=== PATIENT | male | born 1995 | race Caucasian/White ===

== ENCOUNTER 2022-09-09 17:52 | Emergency (ER) | payer SELFPAY ==
[2022-09-09 17:54] VITALS: PULSE 105; RESP 18; TEMP 37.1; O2SAT 96
--- NOTE | 2022-09-09 20:18 | NUR.NOTE ---
Nursing Note:Wound cleaned out with 1L of NS.
--- NOTE | 2022-09-09 20:50 | NUR.NOTE ---
Nursing Note: stapled wound covered with bacitracin, gauze and tegaderm oer COMPLAINTS COORDINATOR request
--- NOTE | 2022-09-09 20:56 | ED.GENADUL_ITS ---
Discharge Plan Disposition Patient Disposition: Home Discharge Details Clinical Impression: Laceration of leg not thigh, left ED Provider: Madhu Portillo Home Meds and New Rx's Prescriptions: No Action No Known Home Meds Discharge Instructions Instructions: Laceration (ED), Staple Care (ED) Additional Instructions: Watch for any signs of infection and return immediately to the emergency department if these occur. Otherwise keep dressing in place for the next 24-48 hours and then keep wound clean and dry. Return to the emergency department 14 days for suture removal. Discharge Data Discharge Date/Time-TO BE ENTERED AT DEPARTURE: 09/09/22 21:20 Medical Decision Making Patient presenting the emergency department for chief complaint of leg laceration. After he suffered a laceration due to looking at the blood he did have a syncopal episode. EMS was contacted and transported patient to the emergency department. Patient has a subcutaneous laceration that is 16-1/2 cm in total length to the left lateral calf. Sensation and movement and pulses are all intact distal to the injury. Please see procedure note for wound repair which was repaired with akbar and 17 akbar were placed. Updated patient's tetanus. After discussion of diagnosis and plan of care patient has no further needs, questions, or concerns and states clear understanding to return to the emergency department for any worsening symptoms. This documentation was generated using [email or web address] dictation system, please disregard any oddities of phrase or misspellings. HPI General Mode of arrival: ambulatory . Date/Time Provider Initiated Documentation: 09/09/22 19:16 . Limitations to Documentation: no limitations . Information obtained by: patient and RN notes reviewed . History of Present Illness 27 year old M presents to the emergency department with the chief complaint of Left leg laceration, described as moderate, Quality is described as sharp, and is localized to the left and lower extremity. Patient reports no radiation. Patient started experiencing this hour(s) (1) and it has been constant. No relieving factors improve symptom(s), No exacerbating factors reported . Patient notes no other symptoms.. Patient did receive the following treatments prior to arrival, none Related Data Home Medications Medication Instructions Recorded Confirmed Unknown [No Known Home Meds] 06/25/16 09/09/22 Allergies Allergy/AdvReac Type Severity Reaction Status Date / Time No Known Allergies Allergy Unverified 09/09/22 19:18 General Stated Complaint: Laceration CEE: 4 Review of Systems Narrative: 6 systems reviewed and unremarkable except what is marked below. Musculoskeletal Musculoskeletal: Denies deformity, Denies limited range of motion, Denies numbness and Denies tingling Integumentary/Breasts Skin/Breast: Reports as per HPI and Reports wounds Neurologic Neurologic: Denies numbness and Denies tingling PFSH All Active Problems (Updated 09/09/22 @ 20:59 by Madhu Portillo NP) Laceration of leg not thigh, left (Acute) Social History Smoking/Tobacco Use Status: Never Smoking risk assessment performed?: Yes Alcohol Intake: current Alcohol Intake frequency: a few times a month Drug use: Occasionally Substance use type: marijuana Do you feel safe in your relationship?: Yes Exam Const General: cooperative, no acute distress and not ill appearing Orientation: alert, awake and oriented x3 HENMT Mouth: moist mucous membranes Resp Effort & Inspection: normal respiratory effort, able to speak in complete sentences and no respiratory distress Cardio Rate: regular rate Rhythm: regular rhythm Pulses: normal peripheral pulses Skin General skin exam: no rashes or lesions noted Neuro General: patient alert, patient awake, patient oriented x3, moves all extremities and no focal motor deficits Sensory Exam: no sensory deficits noted Extrem Left lower extremity: lower leg Details: laceration mid lower leg lateral Details: linear, actively bleeding, involving subcutaneous tissue, with motor nerve function intact and with sensation intact Course Vital Signs Vital signs: Vital Signs Temperature 37.1 C 09/09/22 17:54 Pulse 105 H 09/09/22 17:54 Respiratory Rate 18 09/09/22 17:54 Pulse Oximetry 96 09/09/22 17:54 Temperature 37.1 C 09/09/22 17:54 Temperature Source Oral 09/09/22 17:54 Pulse 105 H 09/09/22 17:54 Respiratory Rate 18 09/09/22 17:54 Respiratory Effort Normal, Non-Labored 09/09/22 17:58 Blood Pressure Position Sitting 09/09/22 17:54 Pulse Oximetry 96 09/09/22 17:54 Oxygen Delivery Method Room Air 09/09/22 17:54 Oxygen Flow Rate 0 09/09/22 17:54 Pain Level 5 09/09/22 19:15 Procedures Laceration Laceration 1: Site: lower extremity Side (If applicable): left Size (cm): 16.5 Description: linear, clean and contaminated Depth: simple, single layer Pre-repair: wound explored, irrigated extensively and deep structures intact Skin layer closed with: other ([place]) Number of sutures: 17
[2022-09-09 21:18] VITALS: BP 132/78; PULSE 92; RESP 16; O2SAT 98
== END 2022-09-09 21:20 | disposition home or self-care (01) ==
PROVIDERS: Emergency Provider Nurse Practitioner Family
DX: S81.812A Laceration without foreign body, left lower leg, initial encounter (principal); W26.8XXA Contact with other sharp object(s), not elsewhere classified, initial encounter; Y93.89 Activity, other specified; Y92.89 Other specified places as the place of occurrence of the external cause; Y99.0 Civilian activity done for income or pay
CPT/HCPCS: 12015; 90472; 99283; 99282

== ENCOUNTER 2022-09-24 13:27 | Emergency (ER) | payer SELFPAY ==
[2022-09-24 13:34] VITALS: BP 145/93; PULSE 100; RESP 20; TEMP 37.2; O2SAT 96
--- NOTE | 2022-09-24 13:41 | ED.GENADUL_ITS ---
Discharge Plan Disposition Patient Disposition: Home Condition: Stable Discharge Details Chief Complaint: SutureRem Clinical Impression: Encounter for removal of akbar Primary Care Provider: None,None ED Provider: Janak Whitley Home Meds and New Rx's Prescriptions: No Action No Known Home Meds Discharge Instructions Additional Instructions: Keep wound clean and protected. Use dressing and [place] wrap. Please contact your primary care physician to arrange follow-up. Return to the ER immediately for any worsening or new concerning symptoms. Medical Decision Making 19-year-old male here 2-week status post leg laceration for staple removal. No signs of infection. [place] removed by nursing without complication. Usual customary discharge instructions reviewed the patient. HPI General Mode of arrival: ambulatory . Date/Time Provider Initiated Documentation: 09/24/22 13:41 . Limitations to Documentation: no limitations . Information obtained by: patient . HPI Narrative: 27-year-old male presents 2 weeks status post left lower leg laceration repair with akbar. Patient here for staple removal. Patient has no concerns and notes wound has been healing well. No discharge, no redness. Related Data Home Medications Medication Instructions Recorded Confirmed Unknown [No Known Home Meds] 06/25/16 09/24/22 Allergies Allergy/AdvReac Type Severity Reaction Status Date / Time No Known Allergies Allergy Unverified 09/24/22 13:37 General Stated Complaint: SutureRem CEE: 4 Review of Systems Integumentary/Breasts Skin/Breast: Reports as per HPI PFS All Active Problems Laceration of leg not thigh, left (Acute) Encounter for removal of akbar (Acute) Social History Smoking/Tobacco Use Status: Never Smoking risk assessment performed?: Yes Alcohol Intake: current Alcohol Intake frequency: a few times a month Drug use: Occasionally Substance use type: marijuana Do you feel safe at home: Yes Do you feel safe in your relationship?: Yes Exam Skin Wounds: wounds noted (left lower leg laceration healing with no signs of infection, akbar intac) Course Vital Signs Vital signs: Vital Signs Temperature 37.2 C 09/24/22 13:34 Pulse 100 H 09/24/22 13:34 Respiratory Rate 20 09/24/22 13:34 Blood Pressure 145/93 H 09/24/22 13:34 Pulse Oximetry 96 09/24/22 13:34 Temperature 37.2 C 09/24/22 13:34 Temperature Source Skin 09/24/22 13:34 Pulse 100 H 09/24/22 13:34 Respiratory Rate 20 09/24/22 13:34 Blood Pressure 145/93 H 09/24/22 13:34 Blood Pressure Position Sitting 09/24/22 13:34 Pulse Oximetry 96 09/24/22 13:34 Oxygen Delivery Method Room Air 09/24/22 13:34 Oxygen Flow Rate 0 09/24/22 13:34 Pain Level 0 09/24/22 13:34
[2022-09-24 14:01] VITALS: BP 140/85; PULSE 88; RESP 20; TEMP 37.2; O2SAT 96
== END 2022-09-24 14:31 | disposition home or self-care (01) ==
PROVIDERS: Emergency Provider Student in an Organized Health Care Education/Training Program
DX: Z48.02 Encounter for removal of sutures (principal)

== ENCOUNTER 2024-07-21 01:45 | Emergency (ER) | payer SELFPAY ==
[2024-07-21 01:48] VITALS: BP 141/103; PULSE 100; RESP 16; TEMP 37.1; O2SAT 97
--- NOTE | 2024-07-21 02:05 | W.ED.GENAD ---
Discharge Plan Disposition Patient Disposition: Home Condition: Good Discharge Details Clinical Impression: Bilateral conjunctivitis ED Provider: Woodrow Raymond Home Meds and New Rx's Prescriptions: New loratadine 10 mg capsule 10 mg PO DAILY Qty: 20 0RF diphenhydramine HCl [Benadryl] 25 mg capsule 25 mg PO QHS PRN (Reason: sleep) Qty: 20 0RF amoxicillin-pot clavulanate 875-125 mg tablet 1 tab PO BID 10 Days Qty: 20 0RF Discharge Instructions Instructions: Sinusitis, Adult ED, Conjunctivitis ([facility]) ED Additional Instructions: At this time you have evidence of mild conjunctivitis. Please place 2 drops in each eye every 4 hours for the next week. Your sinusitis and sore throat appear viral at this time. However if you notice that your symptoms are persisting or worsening over the next 48 to 72 hours please start taking the antibiotic amoxicillin as prescribed. In the meantime please take the Benadryl every night, and the loratadine every morning to help with the congestion and runny nose. Please use a [place] pot or [place] bedside humidifier to help improve the expectoration of the congestion and drainage. If you notice any worsening of your symptoms, or any new symptoms such as vomiting, diarrhea, fever, chills, shortness of breath, chest pain, numbness, weakness, or fainting , please return immediately to the emergency department for reevaluation. Please follow up with your primary care provider as soon as possible for reassessment and reevaluation. As always, it was a pleasure participating in your medical care today. Stand Alone Forms: Work Release HPI General Date/Time Provider Initiated Documentation: 07/21/24 01:53. HPI Narrative: 28-year-old male with no significant past medical history who does not wear contact lenses presents today for evaluation of nose, congestion, crusty get his eyes bilaterally, and mild sore throat. Symptoms have been present for the last 5 days. He denies any other sick contacts. No fever or chills or headaches. No cough or shortness of breath. No other complaints at this time. He denies any vision changes or eye pain. No difficulty swallowing or drinking. Related Data Home Medications ?Medication ?Instructions ?Recorded ?Confirmed amoxicillin 875 mg-potassium 1 tab PO BID 10 days #20 tabs 07/21/24 clavulanate 125 mg tablet diphenhydramine HCl 25 mg capsule 25 mg PO QHS PRN sleep #20 caps 07/21/24 (Benadryl) loratadine 10 mg capsule 10 mg PO DAILY #20 caps 07/21/24 Previous Rx's ?Medication ?Instructions ?Recorded amoxicillin 875 mg-potassium 1 tab PO BID 10 days #20 tabs 07/21/24 clavulanate 125 mg tablet diphenhydramine HCl 25 mg capsule 25 mg PO QHS PRN sleep #20 caps 07/21/24 (Benadryl) loratadine 10 mg capsule 10 mg PO DAILY #20 caps 07/21/24 Allergies Allergy/AdvReac Type Severity Reaction Status Date / Time No Known Allergies Allergy Unverified 07/21/24 01:51 General Stated Complaint: EyeProblem CEE: 4 Exam Narrative Exam Narrative: 1.Const: Well-nourished, Well-developed, appearing stated age 2.Eyes: PERRL, no conjunctival injection, and symmetrical lids. Bilateral crusting of his eyelids. Minimal conjunctival injection. No swelling or edema in the lids. 3.ENT: Atraumatic external nose and ears. Moist MM. Neck: Symmetric, trachea midline, No thyromegaly. Minimal erythema in the posterior oropharynx. No tonsillar exudates. Tympanic membranes are camejo and pearly, with mild amount of clear serous effusion. No purulent effusion. No bulging. 4.CVS: +S1/S2, Peripheral pulses 2+ and equal in all extremities. Brisk capillary refill in all extremities. 5.RESP: Unlabored respiratory effort. Clear to auscultation bilaterally. No wheezes rales or rhonchi 6.GI: Soft, Nontender/Nondistended, No hepatosplenomegaly. No guarding or rebound. 7.MSK: Normocephalic/Atraumatic, Extremities w/o deformity or ttp No cyanosis or clubbing, Normal movement of all extremities 8.Skin: Warm, Dry. No rashes or lesions. 9.Neuro: stencil sprayer II-XII grossly intact. Sensation grossly intact, no focal neurologic deficits. 10.Psych: (AAO) x3. Appropriate mood and affect Course Vital Signs Vital signs: Vital Signs Temperature 37.1 C 07/21/24 01:48 Pulse 100 H 07/21/24 01:48 Respiratory Rate 16 06/03/25 01:48 Blood Pressure 141/103 H 07/21/24 01:48 Pulse Oximetry 97 07/21/24 01:48 Temperature 37.1 C 07/21/24 01:48 Temperature Source Tympanic 07/21/24 01:48 Pulse 100 H 07/21/24 01:48 Respiratory Rate 16 07/21/24 01:48 Blood Pressure 141/103 H 07/21/24 01:48 Pulse Oximetry 97 07/21/24 01:48 Oxygen Delivery Method Room Air 07/21/24 01:48 Oxygen Flow Rate 0 07/21/24 01:48 Pain Level 6 07/21/24 01:48 Comment left ear pain 07/21/24 01:48 Medical Decision Making 28-year-old male with no significant past medical history who does not wear contact lenses presents today for evaluation of nose, congestion, crusty get his eyes bilaterally, and mild sore throat. Symptoms have been present for the last 5 days. He denies any other sick contacts. No fever or chills or headaches. No cough or shortness of breath. No other complaints at this time. He denies any vision changes or eye pain. No difficulty swallowing or drinking. Exam demonstrates bilateral crusting of his eyes, minimal erythema in the posterior oropharynx, runny nose with congestion and green nasal discharge. Symptoms appear consistent with bilateral viral conjunctivitis, however there is a concern that it is transitioning to bacterial. Although he has no ear infection at this time, I am worried this could also transition into a bacterial purulent otitis media. Strep test was performed and is negative. Will discharge home with a bottle of Cipro eyedrops for bilateral administration. Will recommend starting antibiotics if his ear pain worsens, he develops a fever, or symptoms worsen. Discussed red flags for which to return. Will recommend Benadryl and loratadine to help with the congestion and runny nose. I have extensively reviewed the treatment plan and discharge instructions with the patient. I have addressed all patient concerns at this time. The patient was made aware of what symptoms to monitor for that would warrant a return to the emergency department. Discussed the plan with the patient, they demonstrate verbal understanding and agreement with our assessment and plan at this time. The documentation in this chart was dictated using [employer] dictation software. Please excuse any dictation errors. Quality:SDOH Health Related Social Needs: No Data to Display PFSH All Active Problems (Updated 07/21/24 @ 02:11 by Woodrow Raymond DO) Bilateral conjunctivitis (Acute) Social History Smoking/Tobacco Use Status: Never Smoking risk assessment performed?: Yes Alcohol Intake: current Alcohol Intake frequency: a few times a month Drug use: Occasionally Substance use type: marijuana Do you feel safe at home: Yes Do you feel safe in your relationship?: Yes
[2024-07-21] MEDS: Ciprofloxacin 0.3% 2.5 ML BTL OU (02:23)
== END 2024-07-21 02:40 | disposition home or self-care (01) ==
LOC: ER 02:50
PROVIDERS: Emergency Provider Student in an Organized Health Care Education/Training Program
DX: H10.33 Unspecified acute conjunctivitis, bilateral (principal)
CPT/HCPCS: 87880; 99283